=== PATIENT | male | born 1985 | race American Indian/Alaskan Native ===

== ENCOUNTER 2016-12-09 14:01 | Emergency (ER) | payer SELFPAY ==
--- NOTE | 2016-12-09 18:18 | Emergency Department Report ---
ED Rash HPI - HPI Chief Complaint: Pain General Stated Complaint: BODY ACHE AND A RASH Time Seen by Provider: 12/09/16 18:15 Location: Back, Lower Extremities Rash Symptoms: Yes Itching, Yes Blistering, No Facial Swelling, No Tongue/Oral Swelling, No Breathing Difficulties, No Choking Sensation, No Wheezing/Dyspnea, No Peeling, No Fever, No Lightheaded, No Malaise, No Myalgias Severity: moderate ED Review of Systems ROS: Stated complaint: BODY ACHE AND A RASH Other details as noted in HPI Constitutional: denies: chills, fever Eyes: denies: eye pain, eye discharge, vision change ENT: denies: ear pain, throat pain Respiratory: denies: cough, shortness of breath, wheezing Cardiovascular: denies: chest pain, palpitations Endocrine: no symptoms reported Gastrointestinal: denies: abdominal pain, nausea, diarrhea Genitourinary: denies: urgency, dysuria Musculoskeletal: denies: back pain, joint swelling, arthralgia Skin: rash. denies: lesions Neurological: denies: headache, weakness, paresthesias Psychiatric: denies: anxiety, depression Hematological/Lymphatic: denies: easy bleeding, easy bruising ED Past Medical Hx - Past Medical History Previous Medical History?: Yes Hx Hypertension: Yes - Surgical History Past Surgical History?: No - Social History Smoking Status: Never Smoker Substance Use Type: None - Medications Home Medications: Home Medications Medication Instructions Recorded Confirmed Last Taken Type Acetaminophen/Codeine [Tylenol 1 tab PO Q6H PRN #12 tab 12/09/16 Unknown Rx /Codeine # 3 tab] Acyclovir [Zovirax Tab] 800 mg PO Q4H #28 tab 12/09/16 Unknown Rx Gabapentin [Neurontin] 300 mg PO BID PRN #30 cap 12/09/16 Unknown Rx Ibuprofen [Motrin] 600 mg PO Q8H PRN #25 tablet 12/09/16 Unknown Rx Rash Exam - Exam General: Vital signs noted. No distress. Alert and acting appropriately. HEENT: No Periorbital Edema, No Conjuctival Injection, No Chemosis, No Perioral Edema, No Tongue Edema, No Uvular Edema, No Compromised Airway, No Drooling Lungs: Yes Good Air Exchange (Normal Breath Sounds), No Wheezes, No Ronchi, No Stridor, No Cough, No Labored Respirations, No Retractions, No Use of Accessory Muscles, No Other Abnormal Lung Sounds Heart: Yes Regular, No Murmur Skin: Yes Maculopapular Rash, Yes Other (vesicular lesions in the left lower back region and left thigh region following L3 dermatome) Other: Positive: Abdomen Normal, Neurologic Normal, Musculoskeletal Normal ED Course Vital Signs 12/09/16 14:20 Temperature 98.9 F Pulse Rate 74 Respiratory 18 Rate Blood Pressure 149/102 O2 Sat by Pulse 100 Oximetry ED Medical Decision Making - Medical Decision Making A/P: Shingles 1- classic vesicular lesions following L3 dermatome on back and inner thigh 2- acyclovir, this is the patient's first outbreak 3-Motrin, Tylenol 3, gabapentin when necessary 4-acute patient on shingles symptoms Critical care attestation.: If time is entered above; I have spent that time in minutes in the direct care of this critically ill patient, excluding procedure time. ED Disposition Clinical Impression: Shingles outbreak Qualifiers: Herpes zoster complications: without complications Qualified Code(s): B02.9 - Zoster without complications Disposition: DC- TO HOME OR SELFCARE Is pt being admited?: No Does the pt Need Aspirin: No Condition: Stable Instructions: Herpes Zoster (ED) Prescriptions: Acetaminophen/Codeine [Tylenol /Codeine # 3 tab] 1 tab PO Q6H PRN #12 tab PRN Reason: Pain Acyclovir [Zovirax Tab] 800 mg PO Q4H #28 tab Gabapentin [Neurontin] 300 mg PO BID PRN #30 cap PRN Reason: Pain Ibuprofen [Motrin] 600 mg PO Q8H PRN #25 tablet PRN Reason: Pain [facility] - [facility] Time of Disposition: 18:21
[2016-12-09 18:28] VITALS: BP 130/70
== END 2016-12-09 18:28 | disposition home or self-care (01) ==
LOC: ED 14:01
DX: B02.9 Zoster without complications (principal); I10 Essential (primary) hypertension
CPT/HCPCS: 99282

== ENCOUNTER 2017-02-27 08:47 | Emergency (ER) | payer SELFPAY ==
[2017-02-27 09:02] VITALS: BP 150/113
[2017-02-27 10:06] LABS: Bilirubin,Urine NEG (Negative); Blood,Urine NEG (Negative); Ketones,Urine NEG (Negative); Leukocyte Esterase,Urine NEG (Negative); Mucus,Urine FEW /HPF; Nitrite,Urine NEG (Negative); Protein,Urine <15 mg/dL mg/dL (Negative)
[2017-02-27 10:11] LABS: WBC,Urine < 2.0 /HPF (0.0-6.0)
[2017-02-27] MEDS ORDERED: ROCEPHIN IM ONE (10:46)
[2017-02-27] MEDS ORDERED: XYLOCAINE 1% MPF 5 mL INFILTRATI ONE (10:46)
[2017-02-27] MEDS ORDERED: ZITHROMAX PO ONE (10:46)
--- NOTE | 2017-02-27 11:05 | Emergency Department Report ---
ED Male HPI - General Chief complaint: Urogenital-Male Stated complaint: PENILE DISCHARGE X 2 DAYS Time Seen by Provider: 02/27/17 10:42 Source: patient Mode of arrival: Ambulatory Limitations: No Limitations - History of Present Illness Initial comments: PT states he received oral sex on Thursday. PT states he did not use protection. PT states he has had intermittent dysuria since Thu. PT states he has also noticed a small amount of thick and cloudy penile discharge. PT states he can mild the discharge out. PT states he was dx with htn 1 year ago and it has been controlled with diet and life style modifications. MD Complaint: penile discharge -: Gradual, days(s) Quality: burning Consistency: intermittent Improves with: none Worsens with: urination discharge, dysuria. denies: swelling, rash, urinary retention, blood in urine, nausea/vomiting - Related Data Sexually active: Yes Allergies Allergy/AdvReac Type Severity Reaction Status Date / Time No Known Allergies Allergy Unverified 01/28/16 09:10 ED Review of Systems ROS: Stated complaint: PENILE DISCHARGE X 2 DAYS Other details as noted in HPI Comment: All other systems reviewed and negative Constitutional: denies: fever, malaise Gastrointestinal: denies: abdominal pain Genitourinary: dysuria, discharge. denies: testicular pain, testicular mass ED Past Medical Hx - Past Medical History Previous Medical History?: Yes Hx Hypertension: Yes - Surgical History Past Surgical History?: No - Social History Smoking Status: Never Smoker Substance Use Type: Alcohol ED Physical Exam - General Limitations: No Limitations General appearance: alert, in no apparent distress - Head Head exam: Present: atraumatic, normocephalic, normal inspection - Eye Eye exam: Present: normal appearance, PERRL, EOMI. Absent: conjunctival injection - ENT ENT exam: Present: normal exam, mucous membranes moist, normal external ear exam - Neck Neck exam: Present: normal inspection, full ROM - Respiratory Respiratory exam: Present: normal lung sounds bilaterally. Absent: respiratory distress, wheezes, chest wall tenderness - Cardiovascular Cardiovascular Exam: Present: regular rate, normal rhythm, normal heart sounds - GI/Abdominal GI/Abdominal exam: Present: soft. Absent: tenderness - Extremities Exam Extremities exam: Present: normal inspection, full ROM - Back Exam Back exam: Present: normal inspection, full ROM. Absent: tenderness, CVA tenderness (R), CVA tenderness (L), paraspinal tenderness, vertebral tenderness - Neurological Exam Neurological exam: Present: alert, oriented X3, normal gait - Psychiatric Psychiatric exam: Present: normal affect, normal mood - Skin Skin exam: Present: warm, dry, intact, normal color ED Course Vital Signs 02/27/17 08:58 Temperature 97.5 F L Pulse Rate 66 Respiratory 16 Rate Blood Pressure 150/113 O2 Sat by Pulse 100 Oximetry - Reevaluation(s) Reevaluation #1: 02/27/17 11:06 With pt's recent unprotected sexual activity and his symptoms, will treat empirically for gc/ct. pt aware of plan and agrees. No questions at this time. Reevaluation #2: 02/27/17 11:07 PT aware he will need to follow up with PCP and have his bp rechecked. - Pulse Oximetry Interpretation Digit-Finger Initial Pulse Oximetry Readin Actions Taken: none ED Medical Decision Making - Lab Data Labs 02/27/17 09:30 Urine Color Yellow Urine Turbidity Clear Urine pH 6.0 Ur Specific [place] 1.030 Urine Protein <15 mg/dl Urine Glucose (UA) Neg Urine Ketones Neg Urine Blood Neg Urine Nitrite Neg Urine Bilirubin Neg Urine Urobilinogen 2.0 Ur Leukocyte Esterase Neg Urine WBC (Auto) < 2.0 Urine RBC (Auto) 2.0 Urine Mucus Few - Differential Diagnosis std, uti Critical Care Time: No Critical care attestation.: If time is entered above; I have spent that time in minutes in the direct care of this critically ill patient, excluding procedure time. ED Disposition Clinical Impression: Penile discharge, Risky sexual behavior, Elevated blood pressure reading Disposition: - TO HOME OR SELFCARE Is pt being admited?: No Does the pt Need Aspirin: No Condition: Stable Instructions: Sexually Transmitted Diseases (ED), Safe Sex (ED), Chronic Hypertension (ED) Additional Instructions: No sex x 1 week Always use a barrier method to decrease your risk of STD Follow up with your culture results If positive your partners will need testing/ treatment Follow up with PCP or health dept for full panel std testing Follow up with PCP for BP Recheck Referrals: ALEXANDRA AGUILA MD [Primary Care Provider] - 3-5 Days PRINCE MEDRANO MD [Staff Physician] - 3-5 Days [facility] [Outside] - 3-5 Days [facility] [Outside] - 3-5 Days Time of Disposition: 11:10
== END 2017-02-27 11:18 | disposition home or self-care (01) ==
LOC: ED 08:47
DX: I10 Essential (primary) hypertension (principal); R36.9 Urethral discharge, unspecified; R46.89 Other symptoms and signs involving appearance and behavior
CPT/HCPCS: 81001; 87591; 96372; 99283; J0696

== ENCOUNTER 2017-11-17 09:37 | Emergency (ER) | payer OTHER ==
[2017-11-17 09:43] VITALS: BP 155/102
--- NOTE | 2017-11-17 12:13 | Emergency Department Report ---
HPI - General Chief Complaint: Skin Rash Time Seen by Provider: 11/17/17 11:26 - HPI HPI: Patient is a 31-year-old male with no prior history who presents to ED complaining of rash on the right side of his neck for about a week. Patient states he's had this rash some months ago and was given some cream which resulted but now is back. Patient also states that he's been having some penile discharge and remembers being sexually active about 2 months ago. ED Past Medical Hx - Past Medical History Previous Medical History?: Yes Hx Hypertension: Yes (NO MEDS) - Surgical History Past Surgical History?: No - Social History Smoking Status: Never Smoker Substance Use Type: Alcohol - Medications Home Medications: Home Medications Medication Instructions Recorded Confirmed Last Taken Type Hydrocortisone 0.5% 1 applicatio TP TID #1 tube 11/17/17 Unknown Rx [Hydrocortisone 0.5% CREAM] ED Review of Systems ROS: Stated complaint: UROGENTIAL-MALE Other details as noted in HPI Constitutional: denies: chills, fever Eyes: denies: eye pain, eye discharge, vision change ENT: denies: ear pain, throat pain Respiratory: denies: cough, shortness of breath, wheezing Cardiovascular: denies: chest pain, palpitations Endocrine: no symptoms reported Gastrointestinal: denies: abdominal pain, nausea, diarrhea Genitourinary: denies: urgency, dysuria Musculoskeletal: denies: back pain, joint swelling, arthralgia Skin: denies: rash, lesions Neurological: denies: headache, weakness, paresthesias Psychiatric: denies: anxiety, depression Hematological/Lymphatic: denies: easy bleeding, easy bruising Physical Exam - Physical Exam Vital Signs: Vital Signs 11/17/17 09:40 Temperature 97.9 F Pulse Rate 73 Respiratory 18 Rate Blood Pressure 155/102 O2 Sat by Pulse 98 Oximetry Physical Exam: GENERAL: Alert and oriented x3, no apparent distress, Normal Gait, atraumatic. HEAD: Head is normocephalic and a-traumatic. LUNGS: Symetrical with respiration, No wheezing, no rales or crackles, CTAB. HEART: S1, S2 present, regular rate and rhythm without murmur, no rubs, no gallops. Non tender to palpation ABDOMEN: No organomegaly was noted,Positive bowel sounds, soft, and non- distended. . Nontender to palpation on all Quadrants, NO CVA tenderness. UROGENITAL: No scrotal mass, Scrotum non tender to palpation bilaterally, no hernia, no scars or penile discharge. NEUROLOGIC: The patient is cooperative with no focal neurologic deficits. SKIN: Warm and dry generalized, hypopigmented, macula rash noticed on the right side of neck, No other lesions, No ulceration or induration present. ED Course Vital Signs 11/17/17 09:40 Temperature 97.9 F Pulse Rate 73 Respiratory 18 Rate Blood Pressure 155/102 O2 Sat by Pulse 98 Oximetry ED Medical Decision Making - Medical Decision Making 31-year-old male presents with possible with STD exposure. ED course: urinalysis and gonorrhea and Chlamydia cultures obtained. Urinalysis positive for leukorrhea Patient received 250 mg of Rocephin, azithromycin 1 g, Flagyl 2 g. Discussed with patient possible STD due to exposure. Discussed with patient findings and treatment Discussed prophylaxis treatment patient is to abstain from sex 7-10 days as treatment. Discussed patient partner knowledge and treatment. Discussed the follow-up with the health department for further STD testing. Patient's alert and oriented times 3. Vital signs are normal patient is in no acute discharge. Patient will be discharged home with instructions.topic dermatitis Critical care attestation.: If time is entered above; I have spent that time in minutes in the direct care of this critically ill patient, excluding procedure time. ED Disposition Clinical Impression: Exposure to STD Eczema Qualifiers: Eczema type: other Qualified Code(s): L30.8 - Other specified dermatitis Disposition: - TO HOME OR SELFCARE Is pt being admited?: No Does the pt Need Aspirin: No Condition: Stable Instructions: Sexually Transmitted Diseases (ED), Safe Sex (ED), Eczema (ED) Additional Instructions: Make sure to follow up with the primary care physician as discussed. Take all your medications as you've been prescribed. If you have any worsening symptoms or develop new symptoms please return to ED immediately. Prescriptions: Hydrocortisone 0.5% [Hydrocortisone 0.5% CREAM] 1 applicatio TP TID #1 tube Referrals: PRIMARY CARE, [Primary Care Provider] - 3-5 Days [facility] [Outside] - 3-5 Days [facility] [Outside] - 3-5 Days Forms: Accompanied Note, Work/School Release Form(ED) Time of Disposition: 12:33
[2017-11-17 12:25] LABS: Bacteria,Urine 1+ /HPF (Negative); Bilirubin,Urine NEG (Negative); Blood,Urine NEG (Negative); Color,Urine Yellow (Yellow); Protein,Urine <15 mg/dL mg/dL (Negative); Urobilinogen,Urine < 2.0 mg/dL (<2.0); WBC,Urine < 1.0 /HPF (0.0-6.0)
[2017-11-17] MEDS ORDERED: XYLOCAINE 1% MPF 5 mL INFILTRATI ONE (12:36)
[2017-11-17] MEDS ORDERED: ROCEPHIN IM ONE (12:36)
[2017-11-17] MEDS ORDERED: ZITHROMAX PO ONE (12:37)
== END 2017-11-17 12:57 | disposition home or self-care (01) ==
LOC: ED 09:37
DX: Z20.2 Contact with and (suspected) exposure to infections with a predominantly sexual mode of transmission (principal); L30.8 Other specified dermatitis; I10 Essential (primary) hypertension
CPT/HCPCS: 81001; 96372; 99283; J0696